=== PATIENT | female | born 1955 | race African-American/Black ===

== ENCOUNTER → 2017-12-14 | Outpatient (CLI) | payer OTHER ==
--- NOTE | ~2017-12-14 | EKG ---
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
== END ==
LOC: CV 09:36
DX: E21.3 Hyperparathyroidism, unspecified (principal); E04.9 Nontoxic goiter, unspecified

== ENCOUNTER 2018-02-22 05:29 | Day surgery (SDC) | payer OTHER ==
[~2018-02-22] VITALS: Ht 162.6 cm; Wt 86.2 kg
--- NOTE | ~2018-02-22 | PATH ---
[facility] [place] [address] PATHOLOGY RPT PROCEDURE Name: SONJA PEREZ Room #: [facility]P [facility] M.R.#: [id number] Admission: 02/22/18 Date of : 55 Discharge: 02/23/18 Report #: [id number] Path Case #: [id number] [facility] Accession Number: [id number] . 01 Material submitted: . PART A: LEFT THYROID LOBE AND ISTHMUS - FS PART B: RIGHT SUPERIOR R/0 PARATHYROID - FS PART C: RIGHT THYROID LOBE . 01 Clinical history: . Substernal goiter, hyperparathyroidism . 02 Diagnosis: A. Thyroid, left thyroid lobe and isthmus, lobectomy: - Dominant adenomatous nodule with cystic and hemorrhagic degeneration. - Background of multinodular hyperplasia. - Negative for malignancy. . B. Parathyroid, right superior parathyroid, excision: - Compatible with a parathyroid adenoma. . C. Thyroid, right thyroid lobe, lobectomy: - Multinodular hyperplasia. - Negative for malignancy. LBQ/02/24/2018 . 02 Comment: [employer] slides of part A were co-reviewed by Dr. Maye Monterroso who concurs with my diagnosis. (IUV/db; 02/24/18) . 02 Electronically signed: . Tali Taylor MD, Pathologist NPI- [id number] . 01 Gross description: . A. Specimen is received fresh from the OR labeled with the patient's name, and "left thyroid lobe and isthmus" consists of a 41.2 gram markedly enlarged thyroid gland measuring 6.8 x 5.0 x 2.0 cm. It appears cystic with a smooth capsule on the outside. This specimen is not oriented. The specimen is inked black on the outside and serially sectioned and it shows a 4.5 cm cyst lined by a thin 0.1 cm capsule. Within the capsule is hemorrhagic cystic and spongy material. [employer] [employer] section is submitted for frozen section to include the capsule, submitted as FSA1 and this is subsequently submitted for permanent sections as A1. Another focus is used for a touch preparation only (due to a larger size of the cyst), and this is labeled as TPA2. A section from here is submitted for [address] [address] PATHOLOGY RPT PROCEDURE Name: JUANIS PEREZSA Bailey Room #: [facility]#: [id number] Admission: 02/22/18 Date of : 55 Discharge: 02/23/18 Report #: [id number] Path Case #: [id number] permanent sections only as A2. The remainder of the capsule in entirety is submitted in A3 to A10. The unremarkable appearing thyroid tissue compressed to the side submitted in A11 and A12. . B. Received fresh from the OR labeled with the patient's name, and "right superior rule out parathyroid", consists of a 0.4 gram oval spongy tissue measuring approximately 2.0 x 0.7 x 0.7 cm. The capsule is inked black and the specimen is bisected and submitted for frozen section as FSB1, subsequently submitted for permanent section as B1. (IUV:pit 02/22/2018) . C. The specimen is received in formalin, labeled "Perez Sonja, right thyroid lobe" and consists of an enlarged, multinodular, cystic, and unoriented lobe of thyroid weighing 48 g and measuring 7.0 x 4.5 x 3.2 cm. The capsule is intact and smooth with the exception of 2 focal areas of disruption which are inked orange. The rest of the thyroid is inked black. Serial sectioning reveals multiple colloid and cystic nodules ranging from 0.1 x 0.1 cm to 5.0 x 2.3 cm which abut the skin 0.1 cm capsule. The largest nodule is variegated from soft and fleshy pink-sierra to cystic and hemorrhagic. These nodules make up over 75% of the parenchyma with the remaining 25% being soft brown-red. Sections are submitted as follows: . C1-C4: Entire capsule of first disrupted nodule C5-C16: Entire remainder of the capsule C17: [employer] uninvolved parenchyma (SDY; 02/23/2018) . FROZEN SECTION: (Tali Taylor) . FSA1 and TPA2, left thyroid lobe and isthmus: - TPA2 with watery colloid and flat macrofollicles. - FSA1 showing macrofollicular lesion. - Negative for nuclear features of papillary carcinoma on TPA2 of FSA1 slides. . FSB1, right superior parathyroid: - Markedly hypercellular parathyroid tissue present. . These findings are discussed with Dr. Chris Gale in OR 1 and a written report is placed in the patient's chart. . (IUV:pit 02/22/2018) . Frozen section performed at [facility], [address] , [place] [address]. /[facility] [address] [place] [address] PATHOLOGY RPT PROCEDURE Name: SONJA PEREZ Room #: DEP [facility]..#: [id number] Admission: 02/22/18 Date of : 55 Discharge: 02/23/18 Report #: [id number] Path Case #: [id number] . 02 Pathologist provided ICD-10: D35.1, E04.2 . 02 CPT . 540435, 744265, 774543, 872047, 383230, 952700 Specimen Comment: A courtesy copy of this report has been sent to Specimen Comment: [phone], . Specimen Comment: Report sent to / DR BUSTILLO Specimen Comment: A duplicate report has been generated due to demographic updates. Performed at: 01 [facility] [address], [place], [place] [id number] MD Shan Christy MD Phone: [phone] Performed at: 02 [facility] [place] [address] [place], [place] [id number] MD Tali Taylor MD Phone: [phone]
--- NOTE | ~2018-02-22 | O ---
[facility] [place] [address] OPERATIVE REPORT Name: NORBERT PEREZ Room #: [facility]..#: [id number] Admission: 02/22/18 Attend Phys: Chris Gale MD Discharge: 02/23/18 Date of : 55 Report #: [id number] THIS REPORT FOR: //name// CC: Chris Larose DO DATE OF SERVICE: 02/22/2018 SURGEON: Chris Gale MD PREOPERATIVE DIAGNOSES: 1. Substernal goiter, symptomatic. 2. Primary hyperparathyroidism. POSTOPERATIVE DIAGNOSES: 1. Substernal goiter, symptomatic. 2. Primary hyperparathyroidism. OPERATION PERFORMED: 1. Total thyroidectomy. 2. Parathyroidectomy, right superior. 3. Nerve integrity monitoring x 2 hours. INDICATIONS: The patient is a 62-year-old female presenting with a symptomatic substernal goiter with compressive symptoms that has been watched for some years now with steady growth. CT scan showed a markedly enlarged multinodular gland with transverse narrowing of the airway in the AP diameter. In addition, the patient was found to have elevated calcium and confirmed with elevated PTH consistent with primary hyperparathyroidism. Recommendations were made for total thyroidectomy of the substernal goiter, in addition parathyroid exploration and parathyroidectomy. DESCRIPTION OF PROCEDURE: The patient was brought to the operating room and placed supine on the operating table. After adequate general anesthesia was achieved via endotracheal intubation with a nerve integrity monitoring endotracheal tube, a shoulder roll was placed and neck was extended. Planned incision was marked out in a relaxed skin tension line and injected with 1% Xylocaine with 1:100,000 epinephrine. As a separate part of the procedure, the Xomed nerve integrity monitor leads from the endotracheal tube were applied to the nerve monitor. Needle of the ground electrodes were placed in the soft tissue overlying the sternum and contralateral shoulder. Electrode resistance and impedance was measured and found to be acceptable. Threshold and stimulus intensity parameters were set and the patient was monitored for the entirety of the case for approximately 2 hours in order to locate and protect the recurrent nerve. She was then prepped and draped in a sterile fashion. Procedure began [facility] [address] [place] [address] OPERATIVE REPORT Name: PEREZNORBERT Room #: DEP [facility] M.R.#: [id number] Admission: 02/22/18 Attend Phys: Chris Gale MD Discharge: 02/23/18 Date of : 55 Report #: [id number] with incision through skin and subcutaneous tissue and platysma. Subplatysmal flaps were elevated superiorly and inferiorly. Dissection was made down to the strap muscles. These were divided vertically in the midline and retracted laterally. The patient had a very large goiter stretching the strap muscles. Beginning on the left side, the superior border of the thyroid was identified and using the harmonic brad, this was taken down. The superior vessels were sequentially identified, clamped between Ligaclips and divided. Dissection around the gland revealed the middle thyroid vein. This was clamped between Ligaclips and divided. The attention was then turned to the isthmus. This was taken down off the trachea with the harmonic brad and the gland was removed from lateral to medial. Finger dissection was able to dissect the substernal extension of the thyroid under the clavicle into the upper mediastinum. This was able to be delivered into the wound and then the inferior vessels sequentially identified, clamped between Ligaclips and divided. Once the gland was mobilized, the tracheoesophageal groove was explored. Recurrent nerve was found in its usual anatomic position and trace superiorly to the cricothyroid joint. Keeping it in direct vision, Horne's ligament was taken down sharply. Superior parathyroid on this side was found to be attached to the gland, dissected free and protected. It was normal size. The inferior parathyroid was just inferior to this also on the gland and also dissected free and kept pedicled on its blood supply, also normal size. This lobe was delivered off the field as specimen to pathology. It was returned consistent with a follicular lesion, but final diagnosis deferred to permanent section. Attention was then turned to the opposite right side. Again, beginning superiorly, the superior vessels were sequentially identified, clamped between Ligaclips and divided. Middle thyroid vein was taken down between Ligaclips. The inferior vessels were sequentially identified, clamped between Ligaclips and divided. This gland as well was rolled up on to the trachea. Dissection in the tracheoesophageal groove again revealed the recurrent nerve in its usual anatomic position. This was confirmed with probe stimuli and then tracked superiorly to the cricothyroid joint. Horne's ligament was taken down sharply. The inferior parathyroid was on the gland, dissected free and preserved. The superior parathyroid was found posterior to the nerve opposite the cricothyroid joint and was a large parathyroid consistent with a parathyroid adenoma. This was confirmed with gamma probe. This right lobe was delivered off the field in formalin to pathology. Dissection then began posterior to the recurrent nerve at the level of the cricothyroid joint and a large hypercellular parathyroid was harvested. The afferent and efferent vessels were taken down with Harmonic scalpel. This was delivered off the field to pathology, confirming a hypercellular parathyroid. The inferior parathyroid on this side appeared normal and was left alone. 15 minutes after excision, iPTH was drawn. The preoperative iPTH was 88. The postoperative iPTHis pending at the time of this dictation. The hemostasis was assured with bipolar cautery and clip ligature. The wound was then irrigated and then closed in layers with interrupted 3-0 Vicryl on the strap muscles after using powdered [place]. A 15-Yemeni Luiz drain was placed through a separate stab incision utilizing a scar over her chest that was [facility] [address] [place] [address] OPERATIVE REPORT Name: NORBERT PEREZ Room #: DEP [facility].#: [id number] Admission: 02/22/18 Attend Phys: Chris Gale MD Discharge: 02/23/18 Date of : 55 Report #: [id number] preexisting and curled into the wound. This was connected to bulb suction and sutured in place with 2-0 silk. The strap muscles were closed with 3-0 Vicryl. A 3-0 Vicryl was used to close the platysma layer and 4-0 Vicryl deep dermal sutures and then 5-0 running Prolene on skin. Mastisol and Steri-Strips were applied followed by an Op-Site. After retrieval of the PTH, the plan will be to awaken the patient, return to recovery provided she does well, discharge her to the floor in anticipation of her being discharged in the morning pending normal calcium. Written and verbal discharge instructions and emergency precautions have been given to her family and . DISCHARGE MEDICATIONS: Include cephalexin 500 mg 4 times a day, Phenergan suppository 25 mg 1 per rectum q. 4-6 hours p.r.n., hydrocodone/acetaminophen 7.5/325 one to two q. 4-6 hours p.r.n., Synthroid 150 mcg every day, Tums 500 mg 2 tablets t.i.d. She is instructed on light activity and a soft diet. <ELECTRONICALLY SIGNED> By: Chris Gale MD 03/08/18 1512 1506 1713 Chris Gale MD /nt
[~2018-02-22 05:29] MED LIST: ALPRAZOLAM 0.0.25 M1 PO; LEXAPRO 10 MG T10 M2 PO; MULTI VITAMIN1 EACH PO; NORVASC10 MG PO; PROTONIX40 M1 PO
[2018-02-22 08:02] VITALS: BP 118/77
[2018-02-22] MEDS ORDERED: PROMS25 WY RECTAL (15:13)
[2018-02-22] MEDS ORDERED: NORCO 7.5-3251 EACH PO (15:14)
[2018-02-22 16:27] LABS: ALBUMIN 3.9 g/dL (3.4-5.0); CALCIUM 8.9 mg/dL (8.5-10.1); MAGNESIUM 2.1 mg/dL (1.8-2.4)
[2018-02-22 20:37] VITALS: BP 141/83
[2018-02-22 21:30] VITALS: BP 123/79
[2018-02-22 22:30] VITALS: BP 126/63
[2018-02-22 23:30] VITALS: BP 123/76
[2018-02-23 00:30] VITALS: BP 121/78
[2018-02-23 05:41] VITALS: BP 116/71
[2018-02-23 07:22] VITALS: BP 117/71
[2018-02-23 11:11] VITALS: BP 117/71
== END 2018-02-23 14:46 | disposition home or self-care (01) ==
LOC: OR 05:29 → TBA 05:30 → OR 14:03 → 4E 17:01 → OR 02-23 14:46
PROVIDERS: Otolaryngology Plastic Surgery within the Head & Neck
DX: E04.2 Nontoxic multinodular goiter (principal); D35.1 Benign neoplasm of parathyroid gland; E21.0 Primary hyperparathyroidism; Z79.899 Other long term (current) drug therapy
CPT/HCPCS: 10783; 50010; 50101; 50331; 50386; 50417; 52190; 52220; 52225; 52287; 56524; 56526; 56528; 56760; 57006; 62110; 62900; 65130; 65133; 70005